=== PATIENT | female | born 1990 ===

== ENCOUNTER 2020-07-21 10:36 | Emergency (ER) | payer OTHER ==
[~2020-07-21] VITALS: Ht 165.1 cm; Wt 72.6 kg
== END 2020-07-21 11:58 | disposition home or self-care (01) ==
LOC: ER 10:36
DX: S01.82XA Laceration with foreign body of other part of head, initial encounter (principal); W01.118A Fall on same level from slipping, tripping and stumbling with subsequent striking against other sharp object, initial encounter; Y93.89 Activity, other specified; Y92.89 Other specified places as the place of occurrence of the external cause; Y99.8 Other external cause status